=== PATIENT | male | born 1960 | race Caucasian/White ===

== ENCOUNTER 2018-10-01 20:41 | Emergency (ER) | payer OTHER ==
[2018-10-01] MEDS ORDERED: GLUCAGON 1 MG/VIAL ONE ×2 (22:21→23:17)
--- NOTE | 2018-10-01 23:13 | EDPHYS ---
Physician Documentation [facility] Name: Collin Ness Age: 57 yrs Sex: Male : 1960 Arrival Date: 10/01/2018 Time: 20:51 Bed 7 Private MD: ED Physician Julio Cesar Malave HPI: 10/01 22:02 This 57 yrs old Male presents to ER via Ambulatory with complaints of Food jr8 stuck in throat. 23:03 The patient or guardian reports the patient has a suspected foreign body, of the jr8 esophagus. The reported likely foreign body is piece of meat. Onset: The symptoms/episode began/occurred acutely, today. Current symptoms: foreign body sensation. The patient has experienced similar episodes in the past, a few times. The patient has not recently seen a physician. History of esophageal stricture with dilation in past. Stated that he had some fried fish for dinner tonight. Feels piece of it stuck in upper esophagus region. Has been trying to drink to get it down but just regurgitates it back up . Historical: - Allergies: 20:56 No Known Allergies; ak1 - Home Meds: 20:56 Wellbutrin Oral [Active]; ak1 - PMHx: 20:56 Depression; ak1 - PSHx: 20:56 Cholecystectomy; Vasectomy; NECK SX; SINUS SX; ak1 - Immunization history:: Adult Immunizations unknown. - Social history:: Smoking status: Patient uses tobacco products, chewing tobacco. - Ebola Screening: : No symptoms or risks identified at this time. ROS: 23:03 Eyes: Negative for injury, pain, redness, and discharge, Neck: Negative for injury, jr8 pain, and swelling, Cardiovascular: Negative for chest pain, palpitations, and edema, Respiratory: Negative for shortness of breath, cough, wheezing, and pleuritic chest pain, Abdomen/GI: Negative for abdominal pain, nausea, vomiting, diarrhea, and constipation, Back: Negative for injury and pain, MS/Extremity: Negative for injury and deformity, Skin: Negative for injury, rash, and discoloration, Neuro: Negative for headache, weakness, numbness, tingling, and seizure. 23:03 ENT: Positive for sore throat. Exam: 23:03 Eyes: Pupils equal round and reactive to light, extra-ocular motions intact. Lids and jr8 lashes normal. Conjunctiva and sclera are non-icteric and not injected. Cornea within normal limits. Periorbital areas with no swelling, redness, or edema. ENT: Nares patent. No nasal discharge, no septal abnormalities noted. Tympanic membranes are normal and external auditory canals are clear. Oropharynx with no redness, swelling, or masses, exudates, or evidence of obstruction, uvula midline. Mucous membranes moist. Neck: Trachea midline, no thyromegaly or masses palpated, and no cervical lymphadenopathy. Supple, full range of motion without nuchal rigidity, or vertebral point tenderness. No Meningismus. Cardiovascular: Regular rate and rhythm with a normal S1 and S2. No gallops, murmurs, or rubs. Normal PMI, no JVD. No pulse deficits. Respiratory: Lungs have equal breath sounds bilaterally, clear to auscultation and percussion. No rales, rhonchi or wheezes noted. No increased work of breathing, no retractions or nasal flaring. Abdomen/GI: Soft, non-tender, with normal bowel sounds. No distension or tympany. No guarding or rebound. No evidence of tenderness throughout. Back: No spinal tenderness. No costovertebral tenderness. Full range of motion. Skin: Warm, dry with normal turgor. Normal color with no rashes, no lesions, and no evidence of cellulitis. MS/ Extremity: Pulses equal, no cyanosis. Neurovascular intact. Full, normal range of motion. Neuro: Awake and alert, GCS 15, oriented to person, place, time, and situation. Cranial nerves II-XII grossly intact. Motor strength 5/5 in all extremities. Sensory grossly intact. Cerebellar exam normal. Normal gait. Vital Signs: 20:56 BP 133 / 90; Pulse 60; Resp 16; Temp 98.5(TE); Pulse Ox 97% on R/A; Weight 95.25 kg ak1 (R); Height 5 ft. 10 in. (177.80 cm) (R); Pain 3/10; 22:16 BP 128 / 78; Pulse 60; Resp 16; Pulse Ox 95% on R/A; ak1 23:32 BP 139 / 94; Pulse 54; Resp 18; Temp 98.5; Pulse Ox 96% on R/A; Pain 0/10; aj1 20:56 Body Mass Index 30.13 (95.25 kg, 177.80 cm) ak1 MDM: 21:26 Patient medically screened. jr8 23:03 Data reviewed: vital signs, nurses notes, and as a result, I will discharge patient. jr8 Data interpreted: Pulse oximetry: on room air is 95 %. Interpretation: normal. Counseling: I had a detailed discussion with the patient and/or guardian regarding: the historical points, exam findings, and any diagnostic results supporting the discharge/admit diagnosis, the need for outpatient follow up, a college dean, to return to the emergency department if symptoms worsen or persist or if there are any questions or concerns that arise at home. Response to treatment: the patient's symptoms have resolved after treatment. ED course: After glucagon patient feels that the FB has passed through and feels better. Has been able to drink water and it go down. No vomiting. Will send home to f/u with GI . 10/01 21:52 Order name: IV; Complete Time: 22:14 jr8 Administered Medications: 22:14 Drug: Glucagon 1 mg Route: IVP; Site: right antecubital; ak1 23:00 Follow up: Response: No adverse reaction ak1 23:10 Drug: Glucagon 1 mg Route: IVP; Site: right antecubital; ak1 23:32 Follow up: Response: No adverse reaction aj1 Disposition: 10/02 06:09 Co-signature as Attending Physician, Julio Cesar Malave MD I agree with the assessment and tw4 plan of care. Disposition: 10/01/18 23:13 Discharged to Home. Impression: Foreign body in esophagus. - Condition is Stable. - Discharge Instructions: Foreign Body. - Medication Reconciliation Form, Thank You Letter, Antibiotic Education, Prescription Opioid Use form. - Follow up: Private Physician; When: 2 - 3 days; Reason: Recheck today's complaints, Continuance of care, Re-evaluation by your physician. - Problem is new. - Symptoms have improved. Signatures: Jessica Urias, NELY RN aj1 Aldo Pichardo PA PA jr8 Kenrda Garcia RN RN ak1 Julio Cesar Malave MD MD tw4 Corrections: (The following items were deleted from the chart) 10/01 23:33 23:13 10/01/2018 23:13 Discharged to Home. Impression: Foreign body in esophagus. aj1 Condition is Stable. Forms are Medication Reconciliation Form, Thank You Letter, Antibiotic Education, Prescription Opioid Use. Follow up: Private Physician; When: 2 - 3 days; Reason: Recheck today's complaints, Continuance of care, Re-evaluation by your physician. Problem is new. Symptoms have improved. jr8
--- NOTE | 2018-10-01 23:13 | ER ---
Nurse's Notes [facility] Name: Collin Ness Age: 57 yrs Sex: Male : 1960 Arrival Date: 10/01/2018 Time: 20:51 Bed 7 Private MD: Diagnosis: Foreign body in esophagus Presentation: 10/01 20:54 Presenting complaint: Patient states: EATING FISH AT 2020, FEELS IF FISH IS STUCK IN ak1 HIS THROAT. PT HAS HX ESOPHAGUS STRETCHING X2. NO DROOLING NOTED IN TRIAGE, NO RESP DISTRESS NOTED AT THIS TIME. Transition of care: patient was not received from another setting of care. Onset of symptoms was October 01, 2018. Risk Assessment: Do you want to hurt yourself or someone else? Patient reports no desire to harm self or others. Initial Sepsis Screen: Does the patient meet any 2 criteria? No. Patient's initial sepsis screen is negative. Does the patient have a suspected source of infection? No. Patient's initial sepsis screen is negative. Care prior to arrival: None. 20:54 Method Of Arrival: Ambulatory ak1 20:54 Acuity: SHERLEY 3 ak1 Triage Assessment: 20:56 General: Appears in no apparent distress. Behavior is calm, cooperative. ak1 Historical: - Allergies: 20:56 No Known Allergies; ak1 - Home Meds: 20:56 Wellbutrin Oral [Active]; ak1 - PMHx: 20:56 Depression; ak1 - PSHx: 20:56 Cholecystectomy; Vasectomy; NECK SX; SINUS SX; ak1 - Immunization history:: Adult Immunizations unknown. - Social history:: Smoking status: Patient uses tobacco products, chewing tobacco. - Ebola Screening: : No symptoms or risks identified at this time. Screenin:15 Abuse screen: Denies threats or abuse. Denies injuries from another. Nutritional ak1 screening: No deficits noted. Tuberculosis screening: No symptoms or risk factors identified. Fall Risk None identified. Assessment: 21:34 General: Appears in no apparent distress. comfortable, Behavior is calm, cooperative, aj1 appropriate for age. Pain: Complains of pain in neck Pain does not radiate. Pain currently is 3 out of 10 on a pain scale. Neuro: Level of Consciousness is awake, alert, obeys commands, Oriented to person, place, time, situation. Cardiovascular: Patient's skin is warm and dry. Respiratory: Airway is patent Respiratory effort is even, unlabored, Respiratory pattern is regular, symmetrical, Breath sounds are clear bilaterally. Denies shortness of breath. 21:34 GI: Abdomen is non-distended, Reports feeling like something is caught in his throat, aj1 reports that this has happened numerous times to him over the past several years and he gets his esophagus dilated approximately every 5 years. 21:34 : No signs and/or symptoms were reported regarding the genitourinary system. EENT: No aj1 signs and/or symptoms were reported regarding the EENT system. Derm: No signs and/or symptoms reported regarding the dermatologic system. Skin is pink, warm \\T\\ dry. normal. Musculoskeletal: No signs and/or symptoms reported regarding the musculoskeletal system. Circulation, motion, and sensation intact. 22:15 Reassessment: Patient appears in no apparent distress at this time. No changes from ak1 previously documented assessment. Patient and/or family updated on plan of care and expected duration. Pain level reassessed. pt informed of wait for 30 mins to see effectiveness of medication. 23:10 Reassessment: pt stated "the food passed" no resp distress, no drooling noted. ak1 23:31 Reassessment: Patient appears in no apparent distress at this time. No changes from aj1 previously documented assessment. Patient and/or family updated on plan of care and expected duration. Pain level reassessed. Patient is alert, oriented x 3, equal unlabored respirations, skin warm/dry/pink. Patient states feeling better. Patient states symptoms have improved. pt tolerated water . Vital Signs: 20:56 BP 133 / 90; Pulse 60; Resp 16; Temp 98.5(TE); Pulse Ox 97% on R/A; Weight 95.25 kg ak1 (R); Height 5 ft. 10 in. (177.80 cm) (R); Pain 3/10; 22:16 BP 128 / 78; Pulse 60; Resp 16; Pulse Ox 95% on R/A; ak1 23:32 BP 139 / 94; Pulse 54; Resp 18; Temp 98.5; Pulse Ox 96% on R/A; Pain 0/10; aj1 20:56 Body Mass Index 30.13 (95.25 kg, 177.80 cm) [facility] ED Course: 20:51 Patient arrived in ED. es 20:55 Triage completed. ak1 20:56 Arm band placed on Patient placed in an exam room, Patient notified of wait time. ak1 21:19 Aldo Pichardo PA is PHCP. jr8 21:19 Julio Cesar Malave MD is Attending Physician. jr8 21:34 Jessica Urias, RN is Primary Nurse. aj1 21:34 No provider procedures requiring assistance completed. aj1 22:14 Inserted saline lock: 20 gauge in right antecubital area, using aseptic technique. ak1 22:15 Patient has correct armband on for positive identification. Placed in gown. Bed in low ak1 position. Call light in reach. Side rails up X 1. Pulse ox on. NIBP on. 22:15 Report given to NELY Gardner. aj1 23:31 IV discontinued, intact, bleeding controlled, No redness/swelling at site. Pressure aj1 dressing applied. Administered Medications: 22:14 Drug: Glucagon 1 mg Route: IVP; Site: right antecubital; ak1 23:00 Follow up: Response: No adverse reaction ak1 23:10 Drug: Glucagon 1 mg Route: IVP; Site: right antecubital; ak1 23:32 Follow up: Response: No adverse reaction aj1 Outcome: 23:13 Discharge ordered by . jr8 23:31 Discharged to home ambulatory. aj1 23:31 Condition: good 23:31 Discharge instructions given to patient, Instructed on discharge instructions, follow up and referral plans. Demonstrated understanding of instructions, follow-up care. 23:33 Patient left the ED. aj1 Signatures: Jessica Urias, RN RN aj1 Vivien Bettencourt Josh, PA PA jrKendra Gale RN RN ak1 Corrections: (The following items were deleted from the chart) 23:22 21:34 Respiratory: Airway is patent Respiratory effort is even, unlabored, Respiratory aj1 pattern is regular, symmetrical, aj1
== END 2018-10-01 23:33 | disposition home or self-care (01) ==
LOC: ER 20:41
DX: T18.128A Food in esophagus causing other injury, initial encounter (principal); F32.9 Major depressive disorder, single episode, unspecified; Z72.0 Tobacco use
CPT/HCPCS: 96374; 99283; J1610